=== PATIENT | male | born 1970 | race Hispanic/Latino ===

== ENCOUNTER 2019-03-12 18:55 | Emergency (ER) | payer SELFPAY ==
[2019-03-12] MEDS ORDERED: HYDROCODONE/APAP 10/325 TAB ONE (20:18)
--- NOTE | 2019-03-12 20:56 | RAD REPORT ---
EXAM DESCRIPTION: RAD - Elbow Left 3 View - 03/12/2019 8:26 pm CLINICAL HISTORY: Elbow pain following blunt force trauma COMPARISON: None. FINDINGS: No fracture is identified and no elevated posterior fat pad. There is no dislocation or pe riosteal reaction noted. No foreign body or other soft tissue abnormality. No foreign body. IMPRESSION: Negative left elbow examination.
--- NOTE | 2019-03-12 20:57 | RAD REPORT ---
EXAM DESCRIPTION: RAD - Forearm Left - 03/12/2019 8:26 pm CLINICAL HISTORY: Blunt force trauma, left forearm pain COMPARISON: None. FINDINGS: No fracture is identified. There is no dislocation or periosteal reaction noted. No foreign body or other soft tissue abnormality. IMPRESSION: Negative left forearm examination.
--- NOTE | 2019-03-12 22:57 | ER ---
Nurse's Notes [facility] Name: Mich Thompson Age: 48 yrs Sex: Male : 1970 Arrival Date: 03/12/2019 Time: 18:58 Bed 18 Private MD: Diagnosis: Contusion of left forearm Presentation: 03/12 19:09 Presenting complaint: Presenting complaint: Patient states: " I was at work today at aj1 2:30 and a piece of metal fell from above and hit my arm. I can't move my elbow. I can't move my fingers. They gave me Tylenol and anti-inflammatory medicine but I don't feel good". Transition of care: patient was not received from another setting of care. Onset of symptoms was March 12, 2019 at 14:30. Risk Assessment: Do you want to hurt yourself or someone else? Patient reports no desire to harm self or others. Initial Sepsis Screen: Does the patient meet any 2 criteria? No. Patient's initial sepsis screen is negative. Does the patient have a suspected source of infection? No. Patient's initial sepsis screen is negative. Care prior to arrival: None. 19:09 Method Of Arrival: Ambulatory aj1 19:09 Acuity: DIMITRI 4 aj1 Triage Assessment: 19:12 General: Appears in no apparent distress. uncomfortable, Behavior is calm, cooperative, aj1 appropriate for age. Pain: Complains of pain in left elbow. Pain: Pain currently is 9 out of 10 on a pain scale. Neuro: Level of Consciousness is awake, alert, obeys commands, Oriented to person, place, time, situation. Cardiovascular: Patient's skin is warm and dry. Respiratory: Airway is patent Respiratory effort is even, unlabored, Respiratory pattern is regular, symmetrical. Musculoskeletal: Range of motion: limited in left elbow. Historical: - Allergies: 19:12 No Known Allergies; aj1 - Home Meds: 19:12 None [Active]; aj1 - PMHx: 19:12 None; aj1 - PSHx: 19:12 None; aj1 - Immunization history:: Flu vaccine is up to date. - Social history:: Smoking status: Patient/guardian denies using tobacco. - Ebola Screening: : Patient denies travel to an Ebola-affected area in the 21 days before illness onset. Screenin:20 Abuse screen: Denies threats or abuse. Nutritional screening: No deficits noted. jb4 Tuberculosis screening: No symptoms or risk factors identified. Fall Risk None identified. Assessment: 19:20 General: Appears in no apparent distress. comfortable, Behavior is calm, cooperative, jb4 appropriate for age. Pain: Complains of pain in left arm and left elbow Pain radiates to dorsal aspect of left wrist Pain currently is 10 out of 10 on a pain scale. Quality of pain is described as throbbing. Neuro: Level of Consciousness is awake, alert, obeys commands, Oriented to person, place, time, situation. Cardiovascular: Patient's skin is warm and dry. Respiratory: Airway is patent Respiratory effort is even, unlabored, Respiratory pattern is regular, symmetrical. GI: No deficits noted. No signs and/or symptoms were reported involving the gastrointestinal system. : No deficits noted. No signs and/or symptoms were reported regarding the genitourinary system. EENT: No deficits noted. No signs and/or symptoms were reported regarding the EENT system. Derm: Skin is intact, Skin is pink, warm \\T\\ dry. Musculoskeletal: Circulation, motion, and sensation intact. Range of motion: limited in left elbow, left wrist, MCP of left little finger, MCP of left ring finger and MCP of left middle finger. 20:10 Reassessment: Pt reports that the object that hit him fell from an approximate height jb4 of 20ft and was approximately 3/4' x 2" and weighted about 10lb's. 20:21 Reassessment: Patient appears in no apparent distress at this time. Patient and/or jb4 family updated on plan of care and expected duration. Pain level reassessed. Patient is alert, oriented x 3, equal unlabored respirations, skin warm/dry/pink. 21:11 Reassessment: Patient appears in no apparent distress at this time. Patient and/or jb4 family updated on plan of care and expected duration. Pain level reassessed. Patient is alert, oriented x 3, equal unlabored respirations, skin warm/dry/pink. Pt is resting peacefully in bed with eyes closed, respirations are even and unlabored, no s/s of distress or pain noted. 22:00 Reassessment: Patient appears in no apparent distress at this time. Patient and/or jb4 family updated on plan of care and expected duration. Pain level reassessed. Patient is alert, oriented x 3, equal unlabored respirations, skin warm/dry/pink. 23:05 Reassessment: Patient appears in no apparent distress at this time. Patient and/or jb4 family updated on plan of care and expected duration. Pain level reassessed. Patient is alert, oriented x 3, equal unlabored respirations, skin warm/dry/pink. Pt verbalized understanding of d/c and follow up instructions. ambulated out of ED with steady gait. Vital Signs: 19:12 BP 118 / 89; Pulse 86; Resp 16; Temp 98.7; Pulse Ox 99% on R/A; Weight 74.39 kg (R); aj1 Height 5 ft. 5 in. (165.10 cm) (R); Pain 9/10; 20:21 BP 131 / 93; Pulse 70; Resp 16; Pulse Ox 97% on R/A; jb4 21:00 BP 121 / 88; Pulse 66; Resp 16; Pulse Ox 97% on R/A; jb4 22:00 BP 126 / 91; Pulse 63; Resp 16; Pulse Ox 97% on R/A; jb4 23:00 BP 123 / 88; Pulse 65; Resp 16; Pulse Ox 100% on R/A; jb4 19:12 Body Mass Index 27.29 (74.39 kg, 165.10 cm) [facility] ED Course: 18:58 Patient arrived in ED. mr 19:11 Triage completed. aj1 19:12 Arm band placed on Patient placed in an exam room. aj1 19:20 Patient has correct armband on for positive identification. Bed in low position. Call jb4 light in reach. Side rails up X 1. Pulse ox on. NIBP on. Ice pack to injury. 19:24 Mayo Syed MD is Attending Physician. gs 19:37 Mayo Syed MD is Attending Physician. gs 19:59 Wilton Mccain, ERUM is Primary Nurse. jb4 22:53 Maxwell Lopez MD is Referral Physician. 23:12 No provider procedures requiring assistance completed. Patient did not have IV access jb4 during this emergency room visit. Administered Medications: 20:20 Drug: [place] 10 mg-325 mg 1 tabs {Note: Rass score 0.} Route: PO; jb4 20:50 Follow up: Response: No adverse reaction; RASS: Alert and Calm (0) jb4 Outcome: 22:53 Discharge ordered by . toni 23:12 Discharged to home ambulatory. jb4 23:12 Condition: stable 23:12 Discharge instructions given to patient, Instructed on discharge instructions, follow up and referral plans. Demonstrated understanding of instructions, follow-up care. 23:14 Patient left the ED. jb4 Signatures: Nita Baez, RN RN aj1 Martha Smith James, RN RN jb4 Mayo Syed MD MD gs Corrections: (The following items were deleted from the chart) 23:11 23:05 Reassessment: Patient appears in no apparent distress at this time. Patient jb4 and/or family updated on plan of care and expected duration. Pain level reassessed. Patient is alert, oriented x 3, equal unlabored respirations, skin warm/dry/pink. jb4
--- NOTE | 2019-03-12 22:58 | EDPHYS ---
Physician Documentation [facility] Name: Mich Thompson Age: 48 yrs Sex: Male : 1970 Arrival Date: 03/12/2019 Time: 18:58 Bed 18 Private MD: ED Physician Mayo Syed HPI: 03/12 22:46 This 48 yrs old Male presents to ER via Ambulatory with complaints of Arm gs Injury. 22:46 The patient or guardian complains of injury. The complaints affect the dorsal aspect of gs left forearm. Context: The problem was sustained at work, resulted from a direct blow, from a heavy object, 10lb object . Onset: The symptoms/episode began/occurred acutely, today. Modifying factors: the symptoms are aggravated by movement, bending arm. Associated signs and symptoms: Pertinent negatives: tingling, weakness. Severity of symptoms: At their worst the symptoms were moderate, in the emergency department the symptoms are unchanged. The patient has not experienced similar symptoms in the past. Historical: - Allergies: 19:12 No Known Allergies; aj1 - Home Meds: 19:12 None [Active]; aj1 - PMHx: 19:12 None; aj1 - PSHx: 19:12 None; aj1 - Immunization history:: Flu vaccine is up to date. - Social history:: Smoking status: Patient/guardian denies using tobacco. - Ebola Screening: : Patient denies travel to an Ebola-affected area in the 21 days before illness onset. ROS: 22:46 All other systems are negative. gs Exam: 22:46 Head/Face: Normocephalic, atraumatic. Eyes: Pupils equal round and reactive to light, gs extra-ocular motions intact. Lids and lashes normal. Conjunctiva and sclera are non-icteric and not injected. Cornea within normal limits. Periorbital areas with no swelling, redness, or edema. ENT: Nares patent. No nasal discharge, no septal abnormalities noted. Tympanic membranes are normal and external auditory canals are clear. Oropharynx with no redness, swelling, or masses, exudates, or evidence of obstruction, uvula midline. Mucous membranes moist. Neck: Trachea midline, no thyromegaly or masses palpated, and no cervical lymphadenopathy. Supple, full range of motion without nuchal rigidity, or vertebral point tenderness. No Meningismus. Chest/axilla: Normal chest wall appearance and motion. Nontender with no deformity. No lesions are appreciated. Cardiovascular: Regular rate and rhythm with a normal S1 and S2. No gallops, murmurs, or rubs. Normal PMI, no JVD. No pulse deficits. Respiratory: Lungs have equal breath sounds bilaterally, clear to auscultation and percussion. No rales, rhonchi or wheezes noted. No increased work of breathing, no retractions or nasal flaring. Abdomen/GI: Soft, non-tender, with normal bowel sounds. No distension or tympany. No guarding or rebound. No evidence of tenderness throughout. Back: No spinal tenderness. No costovertebral tenderness. Full range of motion. Skin: Warm, dry with normal turgor. Normal color with no rashes, no lesions, and no evidence of cellulitis. Neuro: Awake and alert, GCS 15, oriented to person, place, time, and situation. Cranial nerves II-XII grossly intact. Motor strength 5/5 in all extremities. Sensory grossly intact. Cerebellar exam normal. Normal gait. 22:46 Constitutional: The patient appears alert, awake, uncomfortable. 22:46 Musculoskeletal/extremity: Extremities: noted in the dorsal aspect of left forearm: tenderness, There is no evidence of ecchymosis, swelling, ROM: limited active range of motion due to pain, in the left wrist and palmar aspect of left forearm, Pulses: are normal with no appreciated deficits, Sensation intact. Vital Signs: 19:12 BP 118 / 89; Pulse 86; Resp 16; Temp 98.7; Pulse Ox 99% on R/A; Weight 74.39 kg (R); aj1 Height 5 ft. 5 in. (165.10 cm) (R); Pain 9/10; 20:21 BP 131 / 93; Pulse 70; Resp 16; Pulse Ox 97% on R/A; jb4 21:00 BP 121 / 88; Pulse 66; Resp 16; Pulse Ox 97% on R/A; jb4 22:00 BP 126 / 91; Pulse 63; Resp 16; Pulse Ox 97% on R/A; jb4 23:00 BP 123 / 88; Pulse 65; Resp 16; Pulse Ox 100% on R/A; jb4 19:12 Body Mass Index 27.29 (74.39 kg, 165.10 cm) aj1 MDM: 20:02 Patient medically screened. gs 22:46 Differential diagnosis: closed fracture, contusion, crush injury. Data reviewed: vital gs signs, nurses notes. Counseling: I had a detailed discussion with the patient and/or guardian regarding: the historical points, exam findings, and any diagnostic results supporting the discharge/admit diagnosis, radiology results, the need for outpatient follow up. 03/12 20:02 Order name: Forearm Left XRAY 03/12 20:02 Order name: Elbow Left 3 View XRAY Administered Medications: 20:20 Drug: [place] 10 mg-325 mg 1 tabs {Note: Rass score 0.} Route: PO; jb4 20:50 Follow up: Response: No adverse reaction; RASS: Alert and Calm (0) jb4 Disposition: 03/12/19 22:53 Discharged to Home. Impression: Contusion of left forearm. - Condition is Stable. - Discharge Instructions: Contusion, Acute Compartment Syndrome. - Work release form, Medication Reconciliation Form, Thank You Letter, Antibiotic Education, Prescription Opioid Use form. - Follow up: Maxwell Lopez MD; When: 1 - 2 days; Reason: Re-evaluation by your physician. Signatures: Dispatcher [employer] EDMS Nita Baez RN RN aj1 Wilton Mccain RN RN jb4 Mayo Syed MD MD Corrections: (The following items were deleted from the chart) 23:14 22:53 03/12/2019 22:53 Discharged to Home. Impression: Contusion of left forearm. jb4 Condition is Stable. Forms are Medication Reconciliation Form, Thank You Letter, Antibiotic Education, Prescription Opioid Use. Follow up: Dr. Maxwell Lopez; When: 1 - 2 days; Reason: Re-evaluation by your physician. gs
== END 2019-03-12 23:14 | disposition home or self-care (01) ==
LOC: ER 18:55
DX: S50.12XA Contusion of left forearm, initial encounter (principal); W20.8XXA Other cause of strike by thrown, projected or falling object, initial encounter; Y93.89 Activity, other specified; Y92.69 Other specified industrial and construction area as the place of occurrence of the external cause; Y99.0 Civilian activity done for income or pay
CPT/HCPCS: 99283